=== PATIENT | female | born 1945 | race Caucasian/White ===

== ENCOUNTER → 2017-03-04 | Outpatient (CLI) | payer MEDICARE, OTHER | END | disposition home or self-care (01) | LOC: CFH 08:00 | PROVIDERS: ATTEND Physical Medicine & Rehabilitation | DX: M51.26 Other intervertebral disc displacement, lumbar region (principal); M51.36 Other intervertebral disc degeneration, lumbar region; M48.07 Spinal stenosis, lumbosacral region; M47.897 Other spondylosis, lumbosacral region; M12.88 Other specific arthropathies, not elsewhere classified, other specified site; M43.16 Spondylolisthesis, lumbar region | CPT/HCPCS: 72148 ==

== ENCOUNTER → 2017-03-24 | Outpatient (CLI) | payer MEDICARE, OTHER ==
[~2017-03-24] MED LIST: ASPI-496 PO; LOSA50TA6 PO; OMEP40CA6 PO; ROPI2TAB6 PO; SIMV40TA3 PO; SOTA80TA PO; TRIA1TAB3 PO
[2017-03-24 11:52] LABS: PATH.CAST-FLAG NOT PRESENT; SPERM-FLAG NOT PRESENT; SRC-FLAG NOT PRESENT; XTAL-FLAG NOT PRESENT; YLC-FLAG NOT PRESENT
[2017-03-24 12:00] LABS: ASPARTATE AMINO TRANSFERASE 28 U/L (15-37); BLOOD UREA NITROGEN 21 mg/dL (7-18)
== END | disposition home or self-care (01) ==
LOC: STAR 09:52
PROVIDERS: ATTEND Neurological Surgery
DX: Z01.818 Encounter for other preprocedural examination (principal); R94.31 Abnormal electrocardiogram [ECG] [EKG]; M43.16 Spondylolisthesis, lumbar region; R79.1 Abnormal coagulation profile
CPT/HCPCS: 36415; 71020; 80053; 81001; 85025; 85610; 85730; 93005

== ENCOUNTER 2017-04-02 09:20 | Inpatient (IN) | payer MEDICARE, OTHER ==
[~2017-04-02] VITALS: Ht 170.2 cm; Wt 103.0 kg
[2017-04-02] MEDS ORDERED: VANCOMYCIN 1,000 MG ONE (10:33)
[2017-04-02] MEDS ORDERED: BUPIVACAINE/PF 0.5% ONE ×2 (10:33→12:36)
[2017-04-02] MEDS ORDERED: EPINEPHRINE 1 MG/ML, 1ML ONE ×2 (10:33→12:36)
[2017-04-02] MEDS ORDERED: THROMBIN 5,000 UNIT VIAL TP ONE (10:34)
[2017-04-02] MEDS ORDERED: BACITRACIN 50,000 UNIT ONE (10:34)
[2017-04-02] MEDS ORDERED: FENTANYL PF 250 MCG/5ML ONE (10:50)
[2017-04-02] MEDS ORDERED: MIDAZOLAM 1 MG/ML, 2ML ONE (10:51)
[2017-04-02] MEDS ORDERED: ROCURONIUM 10 MG/ML ONE (12:07)
[2017-04-02] MEDS ORDERED: ONDANSETRON 2MG/ML, 2ML ONE (12:07)
[2017-04-02] MEDS ORDERED: CEFAZOLIN 1,000 MG ONE (12:07)
[2017-04-02] MEDS ORDERED: PROPOFOL 10 MG/ML, 20ML ONE (12:07)
[2017-04-02] MEDS ORDERED: DEXAMETHASONE 4 MG/ML, 1ML ONE (12:07)
[2017-04-02] MEDS ORDERED: BUPIVACAINE/PF-EPI 0.5% 1:200K INFIL ONE ×2 (12:52→12:53)
[2017-04-02] MEDS ORDERED: OXYcodone 5 MG/5 ML ORAL.SOL UDC PO PRN (13:30)
[2017-04-02] MEDS ORDERED: hydrALAzine 20 MG/ML, 1ML IV PRN (13:30)
[2017-04-02] MEDS ORDERED: ACETAMINOPHEN 325 MG TABLET PO PRN (13:30)
[2017-04-02] MEDS ORDERED: LABETALOL 5MG/ML, 20ML IV PRN (13:30)
[2017-04-02] MEDS ORDERED: MEPERIDINE/PF 25MG/0.5ML IVPush PRN (13:30)
[2017-04-02] MEDS ORDERED: ONDANSETRON 2MG/ML, 2ML IVPush PRN (13:30)
[2017-04-02] MEDS ORDERED: HYDROmorphone 1 MG/ML, 1ML IV PRN (13:30)
[2017-04-02] MEDS ORDERED: PROMETHAZINE 25 MG/ML, 1ML IV PRN (13:30)
[2017-04-02] MEDS ORDERED: HYDROmorphone PCA 30 MG/30 ML ONE (14:52)
[2017-04-02] MEDS ORDERED: OXYcodone 5 MG/5 ML ORAL.SOL UDC ONE (14:53)
[2017-04-02] MEDS ORDERED: HYDROmorphone PCA 30 MG/30 ML IV PRN (15:00)
[2017-04-02] MEDS: FENTANYL PF 100 MCG/2ML IV PRN ×2 (15:10→15:37)
[2017-04-02] MEDS ORDERED: FENTANYL PF 100 MCG/2ML ONE (15:14)
[2017-04-02] MEDS ORDERED: TIZANIDINE 4MG TABLET PO PRN (16:30)
[2017-04-02] MEDS ORDERED: ONDANSETRON 2MG/ML, 2ML IV PRN (17:00)
[2017-04-02] MEDS ORDERED: HYDROmorphone 2 MG/ML, 1ML IV PRN (17:00)
[2017-04-02] MEDS ORDERED: BISACODYL 10 MG SUPP PR PRN (17:00)
[2017-04-02] MEDS ORDERED: PROMETHAZINE 25 MG/ML, 1ML IM PRN (17:00)
[2017-04-02] MEDS ORDERED: MAGNESIUM HYDROXIDE 8%, 30ML UDC PO PRN (17:00)
[2017-04-02] MEDS: NS + 20MEQ KCL 1,000 ML IV SCH (18:06)
[2017-04-02] MEDS: CEFAZOLIN PMX 1GM/50ML 50 ML IVPB SCH (18:06)
[2017-04-02 19:00] VITALS: BP 125/69
[2017-04-02] MEDS ORDERED: SOTALOL 80MG TABLET PO SCH (21:00)
[2017-04-02] MEDS: SOTALOL 80MG TABLET HOMEMEDPO SCH (21:00)
[2017-04-02] MEDS: SIMVASTATIN 40 MG TABLET PO SCH (21:00)
[2017-04-02 23:40] VITALS: BP 103/56
[2017-04-03] MEDS: CEFAZOLIN PMX 1GM/50ML 50 ML IVPB SCH (03:07)
[2017-04-03 03:10] VITALS: BP 131/64
[2017-04-03 06:02] LABS: BLOOD UREA NITROGEN 19 mg/dL (7-18)
[2017-04-03 07:15] VITALS: BP 108/69
[2017-04-03] MEDS: NS + 20MEQ KCL 1,000 ML IV SCH ×2 (07:30→09:07)
[2017-04-03] MEDS: SOTALOL 80MG TABLET HOMEMEDPO SCH ×2 (09:00→19:47)
[2017-04-03] MEDS: TRIAMTERENE-HCTZ 37.5/25 MG TABLET PO SCH (09:05)
[2017-04-03] MEDS: OMEPRAZOLE 20 MG CAPSULE.DR PO SCH ×2 (09:05→20:00)
[2017-04-03] MEDS: SENNA/DOCUSATE TABLET PO SCH (09:05)
[2017-04-03] MEDS: LOSARTAN 100 MG TABLET HOMEMEDPO SCH (09:06)
[2017-04-03] MEDS: HYDROcodone/APAP 10/325 MG TABLET PO PRN ×3 (10:09→19:45)
[2017-04-03 14:57] VITALS: BP 92/42
[2017-04-03 19:40] VITALS: BP 105/59
[2017-04-03] MEDS: SIMVASTATIN 40 MG TABLET PO SCH (19:46)
[2017-04-03] MEDS: ROPINIROLE 2 MG TABLET HOMEMEDPO SCH (19:47)
[2017-04-03] MEDS ORDERED: BISACODYL 10 MG SUPP PR PRN (20:00)
[2017-04-04] MEDS: HYDROcodone/APAP 10/325 MG TABLET PO PRN ×2 (01:20→08:58)
[2017-04-04 02:02] VITALS: BP 117/68
[2017-04-04 06:01] LABS: BLOOD UREA NITROGEN 18 mg/dL (7-18)
[2017-04-04] MEDS: OMEPRAZOLE 20 MG CAPSULE.DR PO SCH (07:30)
[2017-04-04] MEDS: ROPINIROLE 2 MG TABLET HOMEMEDPO SCH (08:56)
[2017-04-04] MEDS: LOSARTAN 100 MG TABLET HOMEMEDPO SCH (08:56)
[2017-04-04] MEDS: SOTALOL 80MG TABLET HOMEMEDPO SCH (08:56)
[2017-04-04] MEDS: SENNA/DOCUSATE TABLET PO SCH (08:57)
[2017-04-04] MEDS: TRIAMTERENE-HCTZ 37.5/25 MG TABLET PO SCH (08:58)
[2017-04-04 11:28] VITALS: BP 129/73
[2017-04-04] MEDS ORDERED: HYDR-3307 PO (12:12)
[2017-04-04] MEDS ORDERED: TIZA4TAB9 PO (12:15)
== END 2017-04-04 12:40 | disposition home or self-care (01) | DRG 460 ==
LOC: 4NOR 09:20 → DCLOUNGE 04-04 12:28
PROVIDERS: ADMIT Neurological Surgery; ATTEND Neurological Surgery
PROC: 4A11X4G Monitoring of Peripheral Nervous Electrical Activity, Intraoperative, External Approach (ICD-10-PCS; 2017-04-02)
PROC: 0SB20ZZ Excision of Lumbar Vertebral Disc, Open Approach (ICD-10-PCS; 2017-04-02)
PROC: 0SG00AJ Fusion of Lumbar Vertebral Joint with Interbody Fusion Device, Posterior Approach, Anterior Column, Open Approach (ICD-10-PCS; principal; 2017-04-02 11:30)
DX: M48.06 Spinal stenosis, lumbar region (principal); M43.16 Spondylolisthesis, lumbar region; E78.00 Pure hypercholesterolemia, unspecified; I48.91 Unspecified atrial fibrillation; Z88.2 Allergy status to sulfonamides; Z91.040 Latex allergy status; Z90.710 Acquired absence of both cervix and uterus; Z83.3 Family history of diabetes mellitus; Z80.8 Family history of malignant neoplasm of other organs or systems; Z72.89 Other problems related to lifestyle; M51.16 Intervertebral disc disorders with radiculopathy, lumbar region
CPT/HCPCS: 36415; 72100; 80048; 85025; 95938; 95941; C1713; C1776; J0171; J0690; J1100; J1170; J2250; J2405; J2704; J3010; J3370; J3480; J3490; C1762